=== PATIENT | male | born 1970 | race Caucasian/White ===

== ENCOUNTER 2018-07-26 10:18 | Observation (INO) | payer OTHER ==
[~2018-07-26] VITALS: Ht 177.8 cm; Wt 131.0 kg
[2018-07-26] MEDS ORDERED: NITROGLYCERIN 2% 1 GM OINT PKT TD STA (11:51)
[2018-07-26] MEDS ORDERED: ASPIRIN 81 MG TAB PO STA (11:51)
[2018-07-26] MEDS ORDERED: NITROGLYCERIN (SL) 0.4 MG TAB SL PRN ×2 (12:00→13:30)
[2018-07-26] MEDS ORDERED: NACL 0.9% 3 ML SYG IV SCH (13:30)
[2018-07-26] MEDS ORDERED: morphine 2 MG INJ IV PRN (13:30)
[2018-07-26] MEDS ORDERED: ACETAMINOPHEN 325 MG TAB PO PRN ×2 (13:30)
[2018-07-26] MEDS ORDERED: HYDROCODONE/APAP (5/325) TAB PO PRN (13:30)
[2018-07-26] MEDS ORDERED: PANTOPRAZOLE (EC) 40 MG TAB PO ONE (13:30)
[2018-07-26] MEDS ORDERED: ONDANSETRON 4 MG INJ IV PRN (13:30)
[2018-07-26] MEDS ORDERED: LIDOCAINE/MYLANTA 40 ML BTL PO ONE (13:30)
--- NOTE | 2018-07-26 14:03 | ERD ---
ER Documentation Chief Complaint Chief Complaint Complains of constriction and pressure x 2 hours ago HPI Patient is a 47-year-old male with a history of gout who presents with chest pain. He said that he has midsternal chest pain which comes and goes. He feels like his "heart is skipping". He feels a squeezing type pain in the midsternal area. He said that he has been belching as well. The symptoms started at 9 AM. He tried 2 Tums. ROS All systems reviewed and are negative except as per history of present illness. Medications Home Meds No Active Prescriptions or Reported Meds Allergies Allergies: Coded Allergies: No Known Allergy (Unverified , 07/26/18) PMhx/Soc History of Surgery: No Anesthesia Reaction: No Hx Neurological Disorder: No Hx Respiratory Disorders: No Hx Cardiac Disorders: Yes (HIGH CHOLESTEROL) Hx Psychiatric Problems: No Hx Miscellaneous Medical Probl: No Hx Alcohol Use: No Hx Substance Use: No Hx Tobacco Use: No Smoking Status: Never smoker FmHx Family History: coronary disease Physical Exam Vitals Vital Signs Date Temp Pulse Resp B/P (MAP) Pulse Ox O2 O2 Flow FiO2 Time Delivery Rate 07/26/18 79 16 131/71 100 Nasal 2.0 12:41 (91) Cannula 07/26/18 98.1 67 20 150/86 98 10:26 (107) Physical Exam Const: No acute distress Head: Atraumatic Eyes: Normal Conjunctiva ENT: Normal External Ears, Nose and Mouth. Neck: Full range of motion. No meningismus. Resp: Clear to auscultation bilaterally Cardio: Regular rate and rhythm, no murmurs Abd: Soft, non tender, non distended. Normal bowel sounds Skin: No petechiae or rashes Back: No midline or flank tenderness Ext: No cyanosis, or edema Neur: Awake and alert Psych: Normal Mood and Affect Result Diagram: 07/26/18 1222 07/26/18 1222 Results 24 hrs Laboratory Tests Test 07/26/18 12:22 White Blood Count 5.9 10^3/ul Red Blood Count 5.11 10^6/ul Hemoglobin 16.6 g/dl Hematocrit 46.8 % Mean Corpuscular Volume 91.6 fl Mean Corpuscular Hemoglobin 32.5 pg Mean Corpuscular Hemoglobin Concent 35.5 g/dl Red Cell Distribution Width 11.9 % Platelet Count 185 10^3/UL Mean Platelet Volume 10.1 fl Immature Granulocytes % 0.200 % Neutrophils % 54.5 % Lymphocytes % 36.5 % Monocytes % 7.3 % Eosinophils % 1.0 % Basophils % 0.5 % Nucleated Red Blood Cells % 0.0 /100WBC Immature Granulocytes # 0.010 10^3/ul Neutrophils # 3.2 10^3/ul Lymphocytes # 2.2 10^3/ul Monocytes # 0.4 10^3/ul Eosinophils # 0.1 10^3/ul Basophils # 0.0 10^3/ul Nucleated Red Blood Cells # 0.0 10^3/ul Sodium Level 142 mmol/L Potassium Level 4.6 mmol/L Chloride Level 102 mmol/L Carbon Dioxide Level 27 mmol/L Anion Gap 13 Blood Urea Nitrogen 9 mg/dl Creatinine 0.96 mg/dl Est Glomerular Filtrat Rate mL/min > 60 mL/min Glucose Level 90 mg/dl Calcium Level 10.7 mg/dl Troponin I < 0.012 ng/ml Current Medications Medications Dose Sig/Hemant Start Time Status Last (Trade) Ordered Route PRN Stop Time Admin Dose Reason Admin Aspirin 162 mg ONCE STAT 07/26/18 DC 07/26/18 (Aspirin) PO 11:51 12:37 07/26/18 11:52 1 inch ONCE STAT 07/26/18 DC 07/26/18 Nitroglycerin TD 11:51 12:38 07/26/18 11:52 (Nitroglyceri n 2% Oint) 1 tab Q5M UP TO 3 07/26/18 DC Nitroglycerin DOSES PRN 12:00 SL .CHEST 07/26/18 13:22 (Nitroglyceri PAIN n (Sl Tab) 0.4 Mg) Ondansetron 4 mg ER BRIDGE 07/26/18 HCl (Zofran PRN IV 13:30 Inj) NAUSEA/VOMITI 07/27/18 13:29 NG 650 mg ER BRIDGE 07/26/18 DC Acetaminophen PRN PO 13:30 (Tylenol .MILD PAIN 07/26/18 13:30 Tab) 1-3 OR TEMP 40 ml ONCE ONCE 07/26/18 DC Miscellaneous PO 13:30 Medication 07/26/18 13:31 (Gi Cocktail (2)) Sucralfate 1 gm QID PO 07/26/18 (Carafate 17:00 Susp) 40 mg ONCE ONCE 07/26/18 DC Pantoprazole PO 13:30 (Protonix 07/26/18 13:31 Tab) 40 mg DAILY@06 07/27/18 Pantoprazole PO 06:00 (Protonix Tab) Simethicone 160 mg ONCE ONCE 07/26/18 DC (Mylicon) PO 13:30 07/26/18 13:31 IV Flush 3 ml PER 07/26/18 (NS 3 ml) PROTOCOL IV 13:30 Aspirin 81 mg DAILY PO 07/27/18 (Aspirin) 09:00 1 tab Q5M PRN 07/26/18 Nitroglycerin SL .CHEST 13:30 PAIN (Nitroglyceri n (Sl Tab) 0.4 Mg) 650 mg Q6H PRN 07/26/18 Acetaminophen PO .PAIN 1-3 13:30 (Tylenol OR TEMP Tab) 1 tab Q6H PRN 07/26/18 Acetaminophen PO .PAIN 4-6 13:30 / Hydrocodone Bitart ([place] (5/325)) Morphine 2 mg Q4H PRN 07/26/18 Sulfate IV .PAIN 13:30 (morphine) 7-10 Procedures/MDM EKG #1 read by me: Rate/Rhythm: Regular rate and rhythm at a normal rate Intervals: Normal Impression: No evidence of ischemia or arrhythmia Departure Diagnosis: Primary Impression: Chest pain Condition: DAMON Dillard MD Jul 26, 2018 14:03
--- NOTE | 2018-07-26 14:29 | RADRPT ---
Echocardiogram Report Patient Name: JEANNE RONDONPatient ID: [id number] : 1970 (47y 9m)Study Date: 07/26/2018 1:45:27 PM Gender: MAccession #: [id number] Tech: [place] Location: Ref.Physician: BACILIO LEMOS Height(Cm): BSA: Weight(Kg): Quality: AdequateAccount #: Procedures: Echocardiographic Report: Transthoracic echocardiogram with complete 2D, M-Mode, and doppler examination. Indications: Chest Pain. Measurements: 2D/M Mode Doppler Measurement Value Normal Range Measurement Value Normal Range LVIDd 2D 4.7 [ 4.2 - 5.8 ] cm AV Peak [place] 1.4 [ 100.0 - 170.0 ] cm/sec LVIDs 2D 2.2 [ 2.5 - 4.0 ] cm AV Peak PG 8.0 [ 2.0 - 9.0 ] mmHg LVPWd 2D 1.0 [ 0.6 - 1.0 ] cm LVOT Peak [place] 1.1 [ 70.0 - 110.0 ] cm/sec IVSd 2D 1.1 [ 0.6 - 1.0 ] cm LVOT Peak PG 5.0 [ 2.0 - 6.0 ] mmHg IVS/LVPW 2D 1.1 ratio MV E Peak [place] 0.6 [ 60.0 - 130.0 ] cm/sec AoR Diam 2D 3.0 [ 2.6 - 3.4 ] cm MV A Peak [place] 0.7 [ 100.0 - 120.0 ] cm/sec LA/Ao 2D 1 ratio MV E/A 0.9 [ 0.8 - 1.5 ] ratio LA Dimen 2D 3.3 [ 3.0 - 4.0 ] cm MV Decel Time 208 [ 104 - 258 ] msec Lat E` Mingo 0.1 [ 10.0 - 15.0 ] cm/sec MV E/A 0.9 [ 0.8 - 1.5 ] ratio Findings: Left Ventricle: Normal left ventricular systolic function. Normal left ventricular cavity size. Mild concentric left ventricular hypertrophy. Ejection fraction is visually estimated at 65 %. Tissue Doppler/Mitral Doppler indices are consistent with impaired relaxation (Stage I diastolic dysfunction). Right Ventricle: Normal right ventricular size. Normal right ventricular systolic function. Left Atrium: The left atrium is normal in size. Right Atrium: The right atrium is normal in size. Mitral Valve: Normal appearance of the mitral valve. Mild mitral annular calcification. Trace mitral regurgitation. Aortic Valve: Normal appearance of the aortic valve. No significant aortic stenosis or insufficiency. Tricuspid Valve: Normal appearance of the tricuspid valve. Unable to obtain RVSP due to minimal presence of tricuspid regurgitation. Pulmonic Valve: Normal pulmonic valve appearance. Pericardium: Normal pericardium with no significant pericardial effusion. Aorta: Normal aortic root. IVC: Normal size and normal respiratory collapse consistent with normal right atrial pressure. Conclusions: Normal left ventricular systolic function. Normal left ventricular cavity size. Mild concentric left ventricular hypertrophy. Ejection fraction is visually estimated at 65 %. Tissue Doppler/Mitral Doppler indices are consistent with impaired relaxation (Stage I diastolic dysfunction). Normal appearance of the mitral valve. Mild mitral annular calcification. Trace mitral regurgitation. Normal appearance of the aortic valve. No significant aortic stenosis or insufficiency. Normal appearance of the tricuspid valve. Unable to obtain RVSP due to minimal presence of tricuspid regurgitation. Electronically Signed By: Ralph Green 2018-07-26 14:28:05 PDT
--- NOTE | 2018-07-26 16:43 | HP ---
Date/Time of Note Date/Time of Note DATE: 07/26/18 TIME: 16:43 Assessment/Plan VTE Prophylaxis Pharmacological prophylaxis: other Lines/Catheters IV [facility] Peripheral IV Assessment/Plan Hospital Course Patient is a male with a past medical history significant for gout who presents to [facility] for sudden onset chest pain. Patient states that this morning he had episode of chest tightness. Patient states that this is not happened before and that the chest pain is now currently gone. Patient does state that when he inhales deeply there is some chest pain in the substernal area. Patient also complains of recent amount of flatulence as well as burping. Patient currently feels a lot better but still has some muscle pain when taking deep inspiration. Patient denies shortness of breath, nausea, vomiting, headache, dizziness, leg pain, leg swelling Objective Physical exam General: Patient is laying in bed and answers questions appropriately Mentation: Patient is alert and oriented 4, Head: Normocephalic atraumatic Eyes: EOMI, pupils reactive to light Neck: Supple, nontender, midline Respiratory: Clear to auscultation bilaterally Cardiovascular: regular rate, no obvious murmurs Gastrointestinal: non-tender to palpation, bowel sounds heard. Neurological: Moves all extremities spontaneously Skin: No new skin lesions Assessment and plan Chest pain -Appears more GI and musculoskeletal at this time given his symptoms of flatulence and burping. Patient doing very well after GI cocktail, simethicone and Protonix. -Rule out ACS, troponins pending, echocardiogram noted with no emergent abnor mality -Monitor overnight -EKG noted -Aspirin given in the ED, will continue aspirin for now, will hold off on statin for now as patient states that he does have a history of high cholesterol but has had bad reactions with statins. If the ACS becomes more likely, patient okay with taking a short course of statin. Gout -Not on meds -Obtain uric acid Dyslipidemia -Patient not able to tolerate statins, working on diet and exercise. Obesity -Patient is doing well losing weight with diet and exercise, continue current regimen Disposition -Rule out ACS, continue troponin. Result Diagram: 07/26/18 1222 07/26/18 1222 Results 24hrs Laboratory Tests Test 07/26/18 12:22 White Blood Count 5.9 Red Blood Count 5.11 Hemoglobin 16.6 Hematocrit 46.8 Mean Corpuscular Volume 91.6 Mean Corpuscular Hemoglobin 32.5 Mean Corpuscular Hemoglobin Concent 35.5 Red Cell Distribution Width 11.9 Platelet Count 185 Mean Platelet Volume 10.1 Immature Granulocytes % 0.200 Neutrophils % 54.5 Lymphocytes % 36.5 Monocytes % 7.3 Eosinophils % 1.0 Basophils % 0.5 Nucleated Red Blood Cells % 0.0 Immature Granulocytes # 0.010 Neutrophils # 3.2 Lymphocytes # 2.2 Monocytes # 0.4 Eosinophils # 0.1 Basophils # 0.0 Nucleated Red Blood Cells # 0.0 Sodium Level 142 Potassium Level 4.6 Chloride Level 102 Carbon Dioxide Level 27 Anion Gap 13 Blood Urea Nitrogen 9 Creatinine 0.96 Est Glomerular Filtrat Rate mL/min > 60 Glucose Level 90 Calcium Level 10.7 H Troponin I < 0.012 HPI/ROS Admit Date/Time Admit Date/Time PMH/Family/Social Past Medical History Medications Current Medications Ondansetron HCl (Zofran Inj) 4 mg ER BRIDGE PRN IV NAUSEA/VOMITING; Start 07/26/18 at 13:30; Stop 07/27/18 at 13:29 Sucralfate (Carafate Susp) 1 gm QID PO ; Start 07/26/18 at 17:00 Pantoprazole (Protonix Tab) 40 mg DAILY@06 PO ; Start 07/27/18 at 06:00 IV Flush (NS 3 ml) 3 ml PER PROTOCOL IV ; Start 07/26/18 at 13:30 Aspirin (Aspirin) 81 mg DAILY PO ; Start 07/27/18 at 09:00 Nitroglycerin (Nitroglycerin (Sl Tab) 0.4 Mg) 1 tab Q5M PRN SL .CHEST PAIN; Start 07/26/18 at 13:30 Acetaminophen (Tylenol Tab) 650 mg Q6H PRN PO .PAIN 1-3 OR TEMP; Start 07/26/18 at 13:30 Acetaminophen/ Hydrocodone Bitart ([place] (5/325)) 1 tab Q6H PRN PO .PAIN 4-6; Start 07/26/18 at 13:30 Morphine Sulfate (morphine) 2 mg Q4H PRN IV .PAIN 7-10; Start 07/26/18 at 13:30 Coded Allergies: No Known Allergy (Unverified , 07/26/18) Social History Smoking Status: Never smoker Exam/Review of Systems Vital Signs Vitals Vital Signs Date Temp Pulse Resp B/P (MAP) Pulse Ox O2 O2 Flow FiO2 Time Delivery Rate 07/26/18 98 22 118/50 99 Room Air 16:30 (72) 07/26/18 2.0 12:41 07/26/18 98.1 10:26 BACILIO LEMOS Jul 26, 2018 16:43
[2018-07-26] MEDS: SUCRALFATE (100 MG/ML) 10ML CUP PO SCH ×2 (16:54→20:11)
[2018-07-26 19:25] VITALS: PULSE 99
[2018-07-26 19:28] VITALS: Ht 177.8 cm; Wt 131.0 kg
[2018-07-26 19:30] VITALS: BP 128/68; PULSE 86; RESP 20
[2018-07-26 20:00] VITALS: PULSE 89
[2018-07-27] VITALS (8 sets, daily range): BP systolic 116–121; BP diastolic 60–72; PULSE 65–95; RESP 18–20
[2018-07-27] MEDS ORDERED: PANTOPRAZOLE (EC) 40 MG TAB PO SCH (06:00)
[2018-07-27] MEDS: SUCRALFATE (100 MG/ML) 10ML CUP PO SCH ×2 (08:04→12:33)
[2018-07-27] MEDS ORDERED: ASPIRIN 81 MG TAB PO SCH (09:00)
[2018-07-27] MEDS ORDERED: PANT40TA4 PO (12:30)
[2018-07-27] MEDS ORDERED: SIME80TA60 PO (12:30)
--- NOTE | 2018-07-27 12:33 | PDOCDIS ---
Discharge Instructions CONDITION [id number] Patient Condition: [id number] Stable FOLLOW UP/APPOINTMENTS Follow-up Plan 1. Please continue to take simethicone and pantoprazole until you see your primary care physician 2. If chest pain continues please return to the ED immediately 3. Please speak to your primary care provider about starting gout prophylactic medications as your uric acid is above 10 BACILIO LEMOS Jul 27, 2018 12:33
--- NOTE | 2018-07-27 12:38 | DS ---
Date/Time of Note Date/Time of Note DATE: 07/27/18 TIME: 12:38 Discharge Summary Admission/Discharge Info Admit Date/Time Jul 26, 2018 at 13:15 Discharge Date/Time Patient Condition: Stable Hospital Course Patient is a male with a past medical history significant for gout and dyslipidemia who presents to [facility] for substernal chest pain. Patient was ruled out for ACS by trending troponins. All which were negative. Echocardiogram was also done which did not show any acute emergent issues. Patient's pain was resolved when patient was taking anti-GI medications such as simethicone and GI cocktail so the diagnosis of GI induced chest pain is most likely. Patient also had a JENNIFER score of 0 as the only close parameter would be severe chest pain which patient denies, patient stated it was more of a chest discomfort and tightness. Patient will follow up with his primary care provider within 1 week and will be discharged with appropriate GI medications. Patient's uric acid was also elevated as he is not on gout prophylactic medications, it was suggested to the patient to follow-up with his primary care provider and start gout prophylactic medications as soon as he is ready Discharge diagnosis Chest pain, resolved. Patient is currently completely chest pain-free gout Dyslipidemia Obesity, doing well on diet Home Meds Active Scripts Simethicone* (Mylicon*) 80 Mg Tab, 160 MG PO Q6H PRN for DISTENSION/GAS/BLOATING for 5 Days, #40 TAB Prov:BACILIO LEMOS 07/27/18 Pantoprazole* (Pantoprazole*) 40 Mg Tablet.dr, 40 MG PO QAM for 30 Days, #30 Alternatives: Omeprazole 20mg, 1 tab po QAM, #30, no refills Prov:BACILIO LEMOS 07/27/18 Follow-up Plan 1. Please continue to take simethicone and pantoprazole until you see your primary care physician 2. If chest pain continues please return to the ED immediately 3. Please speak to your primary care provider about starting gout prophylactic medications as your uric acid is above 10 Primary Care Provider Not On Staff Doctor Time spent on discharge: > 30 minutes Pending Labs Laboratory Tests Test 07/26/18 18:23 07/27/18 00:36 07/27/18 05:30 Creatine Kinase 123 IU/L (23-200) 114 IU/L (23-200) Creatine Kinase 0.5 0.4 Index Creatinine Kinase 0.62 0.45 MB (Mass) ng/ml (0.0-2.4) ng/ml (0.0-2.4) Troponin I < 0.012 < 0.012 ng/ml (0.000-0.120) ng/ml (0.000-0.120 ) White Blood Count 5.2 10^3/ul (4.8-10.8) Red Blood Count 4.64 10^6/ul (4.70-6.10 ) Hemoglobin 14.7 g/dl (14.0-18.0) Hematocrit 42.7 % (42.0-52.0) Mean Corpuscular 92.0 Volume fl (82.0-101.0) Mean Corpuscular 31.7 Hemoglobin pg (29.0-33.0) Mean Corpuscular 34.4 Hemoglobin Concent g/dl (32.0-37.0) Red Cell 11.8 % (11.5-14.5) Distribution Width Platelet Count 166 10^3/UL (140-415) Mean Platelet 10.5 fl (7.4-10.4) Volume Immature 0.200 Granulocytes % % (0.001-0.429) Neutrophils % 39.7 % (39.0-77.0) Lymphocytes % 48.2 % (15.0-51.0) Monocytes % 10.5 % (0.0-11.0) Eosinophils % 1.0 % (0.0-7.0) Basophils % 0.4 % (0.0-2.0) Nucleated Red Blood 0.0 Cells % /100WBC (0.0-0.0) Immature 0.010 Granulocytes # 10^3/ul (0.0-0.031 ) Neutrophils # 2.1 10^3/ul (1.6-7.5) Lymphocytes # 2.5 10^3/ul (0.8-2.9) Monocytes # 0.6 10^3/ul (0.3-0.9) Eosinophils # 0.1 10^3/ul (0.0-0.5) Basophils # 0.0 10^3/ul (0.0-0.1) Nucleated Red Blood 0.0 Cells # 10^3/ul (0.0-0.0) Sodium Level 141 mmol/L (135-144) Potassium Level 4.0 mmol/L (3.5-5.1) Chloride Level 101 mmol/L (97-110) Carbon Dioxide 29 mmol/L (21-31) Level Anion Gap 11 (5-13) Blood Urea 11 mg/dl (7-20) Nitrogen Creatinine 1.05 mg/dl (0.61-1.24) Est Glomerular > 60 mL/min (>60) Filtrat Rate mL/min Glucose Level 98 mg/dl (70-220) Hemoglobin A1c 4.9 % (0-5.9) Calcium Level 9.8 mg/dl (8.4-10.2) Magnesium Level 1.8 mg/dl (1.7-2.5) Total Bilirubin 1.0 mg/dl (0.2-1.3) Direct Bilirubin 0.00 mg/dl (0.00-0.20) Indirect Bilirubin 1.0 mg/dl (0-1.1) Aspartate Amino 42 IU/L (15-46) Transf (AST/SGOT) Alanine 94 IU/L (13-69) Aminotransferase (A LT/SGPT) Alkaline 78 IU/L (42-121) Phosphatase Total Protein 6.9 g/dl (6.1-8.1) Albumin 4.1 g/dl (3.3-4.9) Globulin 2.80 g/dl (1.3-3.2) Albumin/Globulin 1.46 Ratio BACILIO LEMOS Jul 27, 2018 12:38
== END 2018-07-27 13:50 | disposition home or self-care (01) ==
LOC: E/R 10:18 → 6WM 13:15
PROVIDERS: ADMIT Internal Medicine; ATTEND Internal Medicine
DX: R07.9 Chest pain, unspecified (principal); E78.00 Pure hypercholesterolemia, unspecified; E78.5 Hyperlipidemia, unspecified; E66.9 Obesity, unspecified; Z68.41 Body mass index [BMI] 40.0-44.9, adult; M10.9 Gout, unspecified
CPT/HCPCS: 36415; 71045; 80048; 80053; 82550; 82553; 83036; 83735; 84484; 84560; 85025; 93005; 93306; 99285; G0378